=== PATIENT | female | born 1985 | race Asian ===

== ENCOUNTER 2025-01-09 15:30 | Emergency (ER) | payer OTHER, SELFPAY ==
[2025-01-09 15:39] VITALS: BP 168/114
[2025-01-09 16:19] LABS: HCG, Serum Qualitative Screen Negative
[2025-01-09 16:21] LABS: D-Dimer < 0.27 ug/mlFEU (0.00-0.50)
[2025-01-09 16:23] LABS: ALT (SGPT) 22 U/L (0-35); AST (SGOT) 22 U/L (14-36); Albumin 4.3 g/dl (3.5-5.0); Alkaline Phosphatase 87 U/L (38-126); Blood Urea Nitrogen 15 mg/dl (7-17); Calcium 9.1 mg/dl (8.4-10.2); Carbon Dioxide 26 mmol/L (22-30); Chloride 100 mmol/L (98-107); Glucose 130 mg/dl (70-99); Potassium 3.4 mmol/L (3.5-5.1); Sodium 136 mmol/L (135-145); Total Bilirubin 0.5 mg/dl (0.2-1.3); Total Protein 7.1 g/dl (6.3-8.2); eGFR > 60.00
[2025-01-09 16:24] LABS: % Basophils 0.6 % (0-2); % Eosinophils 3.8 % (0-6); % Immature Granulocytes 0.7 % (0-0.5); % Lymphocytes 28.3 % (20.5-51.1); % Monocytes 6.6 % (1.7-9.3); Absolute Basophils 0.1 10^3/uL (0-0.2); Absolute Eosinophils 0.4 10^3/uL (0-0.7); Absolute Immature Granulocytes 0.1 10^3/uL (0-0.05); Absolute Lymphocytes 3.3 10^3/uL (1.2-3.4); Absolute Monocytes 0.8 10^3/uL (0.1-0.6); Absolute Neutrophils 6.9 10^3/uL (1.4-6.5); Hematocrit 38.2 % (37.0-47.0); Mean Corpuscular Hgb 28.5 pg (27.0-31.0); Mean Corpuscular Volume 83.8 fL (81.0-99.0); Mean Platelet Volume 10.4 fL (7.4-10.4); Nucleated Red Blood Cells % 0 %; Platelet Count 262 10^3/uL (130-400); Red Blood Cell Count 4.56 10^6/uL (4.20-5.40); Red Cell Dist. Width 13.2 % (11.5-14.5); White Blood Cell Count 11.5 10^3/uL (4.8-10.8)
[2025-01-09 16:40] VITALS: BP 110/82
[2025-01-09 16:58] VITALS: BMI 34.6
[2025-01-09 17:00] VITALS: BP 142/92
[2025-01-09 17:54] LABS: Magnesium 1.9 mg/dl (1.6-2.3)
[2025-01-09 18:00] VITALS: BP 156/102
[2025-01-09 18:04] LABS: TSH Reflex To Free T4 1.39 uIU/ml (0.47-4.68)
[2025-01-09 18:48] LABS: Troponin I < 0.012 ng/ml
--- NOTE | 2025-01-09 18:58 | ED.GENMED ---
History of Present Illness
General
Chief Complaint: Heart Rate Problem
Time Seen by Provider: 01/09/25 17:01
History of Present Illness
History of Present Illness:
39-year-old female without significant past medical history presenting to the emergency department for chest pain and shortness of breath. Patient reports symptoms for the past 3 to 4 days. She went to her primary care doctor today who was
concerned, told her to go to the hospital. Notes that she had similar symptoms in 2017, however unknown etiology of symptoms. She never saw a vehicle calibration engineer. She denies known history of blood clot, recent surgery or travel. She does note
intermittent chest pain, however denies exertional component. Denies any known cardiac history or family history of cardiac disease. Denies fever cough. Ports that she is noted that her heart rate has been elevated at home. Denies additional
acute medical complaints
Past History
Past History
ED Past Medical History: None and Other (Recurrent vertigo twice per week.)
ED Past Surgical History: None
Social History
Tobacco: Non-smoker
Alcohol: None
Drug: None
Family History
Family History: Negative Diabetes, Hypertension or CAD
Phy Exam
Physical Exam
Physical Exam:
General: Well-appearing, no clinical signs of dehydration, nontoxic and in no acute distress
HEENT: protecting airway
Neck: appears supple
CV: Normal heart rate, regular rhythm
Resp: No accessory muscle use, no increased work of breathing, lungs clear to auscultation bilaterally
Abd: Soft and non-distended, no tenderness to palpation
Extremities: No deformities, no swelling, no erythema, pulses and sensation intact
Neuro: alert, no focal neurologic deficit
: deferred
Rectal: deferred
Psych: Normal affect
Skin: Intact
Course
Orders/Labs/Results
Orders:
Orders
01/09/25 15:31
Electrocardiogram (*1) Urgent
Reason for Study: Tachycardia
EKG- Treatment ONCE
01/09/25 15:45
Test Result ONCE
01/09/25 15:51
CMP [Comprehensive Metabolic Panel] Urgent
Complete Blood Count/With Diff Urgent
D-Dimer Urgent
HCG, Serum Qualitative Screen Urgent
Magnesium Urgent
Comment: ADD ON
TSH Reflex To Free T4 Urgent
Comment: ADD ON
01/09/25 16:27
Add On- LAB Urgent
Tests Added?: TSH reflex to free T4
01/09/25 17:38
Add On- LAB Urgent
Tests Added?: magnesium
Electrocardiogram (*1) Urgent
Reason for Study: Chest Pain
EKG- Treatment ONCE
01/09/25 17:55
Troponin I Urgent
Abnormal Lab Results
01/09/25
15:51
WBC 11.5 H 10^3/uL
(4.8-10.8)
Abs Immat Gran (auto) 0.1 H 10^3/uL
(0-0.05)
Absolute Neuts (auto) 6.9 H 10^3/uL
(1.4-6.5)
Absolute Monos (auto) 0.8 H 10^3/uL
(0.1-0.6)
Immature Gran % 0.7 H %
(0-0.5)
Potassium 3.4 L mmol/L
(3.5-5.1)
Glucose 130 H mg/dl
(70-99)
01/09/25 15:51
01/09/25 15:51
Vital Signs
Initial and Last Documented VS:
Initial Vital Signs
Temp Pulse Resp BP Pulse Ox
97.9 F 106 16 168/114 98
01/09/25 15:39 01/09/25 15:39 01/09/25 15:39 01/09/25 15:39 01/09/25 15:39
Last Documented Vital Signs
Temp Pulse Resp BP Pulse Ox
97.9 F 98 17 156/102 98
01/09/25 15:39 01/09/25 18:15 01/09/25 18:15 01/09/25 18:00 01/09/25 18:15
MDM/Problems Addressed
MDM/Problems Addressed:
39-year-old female without significant past medical history presenting for concern of elevated heart rate, chest pain, difficulty breathing. Vital signs on arrival significant for tachycardia.
On exam patient is resting comfortably, no acute distress or discomfort. Overall benign cardiac and pulmonary exam, mild elevated heart rate. However, heart rate is regular. EKG obtained, no acute ischemia or arrhythmia. Lungs are clear to
auscultation, no respiratory effort. No tenderness to the abdomen, no swelling or tenderness to the lower extremities. Patient had screening laboratory analysis prior to my assessment, undetectable D-dimer, normal electrolyte panel. At this time
without present concern for PE. Will add on magnesium and troponin.
19:00 - Repeat EKG is unchanged, normalized heart rate. Again no arrhythmia. Troponin undetectable. TSH within normal limits. At this time without concern for serious etiology to patient's symptoms, however do feel the patient would benefit from
Holter monitor given intermittent sinus tachycardia. Will provide cardiology follow-up. Advised calling the vehicle calibration engineer tomorrow to schedule an appointment. Strict return precautions communicated to patient verbalized understanding
*EKG
Interpreted by ED Provider?: Yes
EKG Intrepretation Date: 01/09/25
EKG Intrepretation Time: 19:01
Interpretation: normal
Comparison EKG: no changes (03/09/17)
Heart Rate: 109
Rate: tachycardiac
Rhythm: sinus
[place]: normal axis
Interval: normal interval
QRS Pattern: normal QRS
Ischemia: no ischemia
*Critical Care Note
Total Time (30-74mins, 75-104mins- exclusive of procedures): Not Applicable
ED Attending Note
-
Portions of this chart may have been created with voice recognition software.� Occasional wrong word or��sound alike� substitutions may have occurred due to the inherent limitations of voice recognition software.
Discharge Plan
Departure
Patient Disposition: Home (Routine Discharge)
Date of Disposition: 01/09/25
Time of Disposition: 19:04
Patient with high blood pressure during this ER visit?: No
Discharge Problem:
Heart palpitations, Tachycardia
Instructions: Tachycardia, Palpitations (DC)
Prescriptions:
No Action
ibuprofen [Advil Liqui-Gel] 200 MG capsule
200 mg PO PRN PRN (Reason: back pain & headache)
diazepam 2 MG tablet
2 mg PO TIDPRN PRN (Reason: vertigo) Qty: 15 0RF
tramadol 50 MG tablet
50 mg PO Q6HPRN PRN (Reason: back pain) Qty: 15 0RF
albuterol sulfate 1 PUFF HFA aerosol inhaler
2 puff inhalation R QID PRN (Reason: shortness of breath) Qty: 1 0RF
prednisone 20 MG tablet
40 mg PO DAILY Qty: 10 0RF
Referrals:
Benigno Walker MD [Active] -
Seamus Low MD [Family Provider] -
Activity Restrictions/Additional Instructions:
You were seen in the emergency department for elevated heart rate
You were found to have normal blood work and EKG. We recommend that you follow-up with a vehicle calibration engineer for additional testing and monitoring. Please call them tomorrow for an appointment
Please follow-up closely with your primary care physician.
Return to the emergency department for any worsening of your symptoms, or any development of chest pain, difficulty breathing, abdominal pain with persistent vomiting and inability to tolerate food or liquid by mouth (concern for dehydration),
weakness, headache or confusion, fever greater than 100.4, or any additional symptoms that are concerning to you.
Thank you for choosing [facility].
Interventions
Interventions:
*Risk Screen - Suicide Last Done: 01/09/25 15:39
*General Assessment Last Done: 01/09/25 16:58
*Neglect/Abuse Screening Last Done: 01/09/25 16:58
*ED- Fall Risk Assessment Last Done: 01/09/25 16:58
*ED COVID-19 Vaccine History Last Done: 01/09/25 16:58
ED- Cardiac Assessment Last Done: 01/09/25 16:58
ED- Pulmonary Assessment Last Done: 01/09/25 16:58
Discharge Date and Time
Print Language: CROATIAN
[2025-01-09 19:00] VITALS: BP 168/96
== END 2025-01-09 19:40 | disposition home or self-care (01) ==
LOC: EMR 15:30
PROVIDERS: EMERGENCY PHYSICIAN Student in an Organized Health Care Education/Training Program; FAMILY PHYSICIAN Family Medicine
DX: R00.2 Palpitations (principal); R00.0 Tachycardia, unspecified; R07.89 Other chest pain; R06.02 Shortness of breath
CPT/HCPCS: 99284; 80053; 83735; 84443; 84484; 84703; 85025; 85379; 93005

== ENCOUNTER → 2025-02-07 07:35 | Outpatient (REF) | payer OTHER, SELFPAY | LOC: HWRAD 07:35 | PROVIDERS: ATTENDING PHYSICIAN Physician Assistant Medical | DX: R10.11 Right upper quadrant pain (principal) | CPT/HCPCS: 76700 ==

== ENCOUNTER → 2025-02-20 07:12 | Outpatient (REF) | payer OTHER, SELFPAY | LOC: RCS 07:12 | PROVIDERS: ATTENDING PHYSICIAN Internal Medicine Cardiovascular Disease; FAMILY PHYSICIAN Student in an Organized Health Care Education/Training Program | DX: R00.2 Palpitations (principal) | CPT/HCPCS: 93306 ==

== ENCOUNTER → 2025-03-19 07:39 | Outpatient (REF) | payer OTHER, SELFPAY | LOC: RAD 07:39 | PROVIDERS: ATTENDING PHYSICIAN Surgery; FAMILY PHYSICIAN Student in an Organized Health Care Education/Training Program | DX: R10.11 Right upper quadrant pain (principal) | CPT/HCPCS: 78227; A9537; J2805 ==